=== PATIENT | male | born 1945 | race Caucasian/White ===

== ENCOUNTER 2017-07-13 19:45 | Emergency (ER) | payer OTHER, BC ==
[~2017-07-13] VITALS: Ht 167.6 cm; Wt 77.1 kg
[~2017-07-13 19:45] MED LIST: ADVAIR HFA120 INHALA IH; ALBUTEROL2.5 MG/3 M IH; ALTACE10 MG PO; ASPIR-LOW81 MG PO; CEFTIN500 MG PO; CLOPIDOGREL75 MG PO; COUMADIN2 MG PO; CRESTOR10 MG PO; CRESTOR5 MG PO; FLONASE16 G1 BOTH NARES; FUROSEMIDE20 MG PO; LOPRESSOR50 MG PO; NEXIUM40 MG PO; PREDNISONE20 MG PO; PREDNISONE5 MG PO; PROAIR HFA8.5 GM IH; PROTONIX40 MG PO; SPIRIVA RESPIMAT4 GM IH; TAMIFLU75 MG PO; TOPROL XL50 MG PO; WARFARIN SODIUM1 MG PO; WARFARIN SODIUM2 MG PO
[2017-07-13 20:58] LABS: HEMATOCRIT 42.9 % (38.0-50.0); HEMOGLOBIN 14.5 G/DL (12.5-16.6); MCV 92.3 FL (86-99)
[2017-07-13 21:08] LABS: INTER. NORMALIZED RATIO 2.8
[2017-07-13 21:50] VITALS: BP 148/98
== END 2017-07-13 21:55 | disposition home or self-care (01) ==
LOC: EME 19:45
PROVIDERS: Nurse Practitioner Family
PROC: 0CQ7XZZ Repair Tongue, External Approach (ICD-10-PCS; principal; 2017-07-13)
DX: S01.502A Unspecified open wound of oral cavity, initial encounter (principal); Z79.01 Long term (current) use of anticoagulants; X58.XXXA Exposure to other specified factors, initial encounter; I10 Essential (primary) hypertension; Z95.5 Presence of coronary angioplasty implant and graft; Z87.891 Personal history of nicotine dependence; Z95.1 Presence of aortocoronary bypass graft
CPT/HCPCS: 85014; 85018; 85610; 99281; 99284

== ENCOUNTER 2017-07-14 10:46 | Emergency (ER) | payer OTHER, BC ==
[~2017-07-14] VITALS: Ht 165.1 cm; Wt 76.5 kg
[2017-07-14 15:06] VITALS: BP 141/91
== END 2017-07-14 15:07 | disposition home or self-care (01) ==
LOC: EME 10:46
PROC: 0CQ7XZZ Repair Tongue, External Approach (ICD-10-PCS; principal; 2017-07-14)
DX: S01.512A Laceration without foreign body of oral cavity, initial encounter (principal); Z95.1 Presence of aortocoronary bypass graft; Z95.5 Presence of coronary angioplasty implant and graft; Z79.01 Long term (current) use of anticoagulants; Z79.82 Long term (current) use of aspirin; Z79.02 Long term (current) use of antithrombotics/antiplatelets; I48.91 Unspecified atrial fibrillation; Z87.891 Personal history of nicotine dependence
CPT/HCPCS: 99281; 99284